=== PATIENT | female | born 1955 | race Caucasian/White ===

== ENCOUNTER 2019-01-28 11:00 | Outpatient (AMBR) | payer MEDICAID, SELFPAY ==
--- NOTE | 2019-01-21 10:56 | PTNOTE_ITS ---
PT OP Initial Eval Patient Information Pediatric or Adult Patient: Adult PT >13 Visit Reasons: stengthening of the ankle Medical Diagnosis: M76.71 Peroneal tendinitis, RLE S82.61XD Fx of lateral Treatment Dx #1: Muscle weakness Treatment Dx #2: pain in the R ankle Start of Care: 01/21/19 Date of Onset: 09/20/2018 Initial Assessment Subjective 63 y/o female who had a fall on 09/20/2018 after she is stepping out from clinic. She sustained a Displaced fx of lateral malleolus of R fibula. She had her R ankle immobilize in a cast and then after a month she wore a cam boot. Her cam boot was just removed on 12/14/2018. Patient states she feels weak and unsteady during ambulation. Her ankle usually swell after prolonged ambulation. She also mentioned that she is going to chiropractor for her neck, low back and hip. Objective AROM ankle DF 15 deg Ankle PF 10 deg Ankle Eversion 5 deg Ankle inv 15deg Pain on the ankle during movement PS 7/10 at worst and 3/10 at best. MMT Plantar flexors, Dorsiflexors, evertors and invertors 3+/5 Standing balance S = G, Dynamic = F Assessment Patient will need strengthening ex on her distal LE muscles, stabilization exercise and standing balance ex to decrease risk of falls. Educate the Patient with HEP. Patient was authorized for only 1 tx session and then we will request for more treatments afterwards. Patient verbalized understanding. [employer] and [employer] Goals 1. To increase MMT on R Distal LE to 5/5 x 8 weeks 2. To decrease pain on her R ankle to PS 0-10 to 2-10 x 8 weeks 3. To increase ROM on her R ankle to WNl x 8 weeks. 4. To Increase standing dynamic balance to good to decrease risk of falls x 8 weeks. 5. I with HEP. Treatment Plan Thera ex Frequency and Duration 2x/wk x 8 weeks. Certification Dates: 01/21/2019 to 04/23/2019
--- NOTE | 2019-01-28 11:31 | PT.ODAYNRPT ---
PT Outpatient Daily Note Date of Service: January 28, 2019 OP Daily Note Visit Reasons: stengthening of the ankle Outpatient Physical Therapy Treatment Date: 01/28/19 Subjective: pt stated that she was under muscle relaxant medication and pain is at 6/10 PS. Objective: see FC Assessment: pt tolerated therapeutic exercises without any grimace noted. increasing vigor might be necessary. Plan: continuePOC. Pain Present Currently: Yes Length of Time (minutes) of Treatment: 30 Minutes Office Procedures PT Procedures PT Date of Service: 01/21/19 OP PT Eval Mod Complex 30 minutes: Yes
== END 2019-01-28 23:59 | disposition home or self-care (01) ==
PROVIDERS: PCP Nurse Practitioner; Referring Provider Nurse Practitioner; Visit Provider Orthopaedic Surgery
DX: S82.61XD Displaced fracture of lateral malleolus of right fibula, subsequent encounter for closed fracture with routine healing (principal); M62.81 Muscle weakness (generalized); M25.571 Pain in right ankle and joints of right foot; X58.XXXD Exposure to other specified factors, subsequent encounter
CPT/HCPCS: 97110; 97162